=== PATIENT | female | born 1965 | race Caucasian/White ===

== ENCOUNTER 2021-02-18 17:52 | Emergency (ER) | payer OTHER ==
[2021-02-18 19:39] LABS: HEMOGLOBIN 14.2 gm/dl (12.3-15.3); RED BLOOD COUNT 4.82 M/UL (4.00-5.10); WHITE BLOOD COUNT 7.8 K/UL (4.5-11.0)
[2021-02-18] MEDS ORDERED: CEFUROXIME500 MG PO (20:35)
[2021-02-18] MEDS ORDERED: MEDROL4 MG PO (20:35)
[2021-02-18] MEDS ORDERED: VENTOLIN HFA 66.7 GM INH (20:35)
== END 2021-02-18 21:00 | disposition home or self-care (01) ==
LOC: ER1 17:52
PROVIDERS: Preventive Medicine Occupational Medicine
DX: J45.901 Unspecified asthma with (acute) exacerbation (principal); Z88.0 Allergy status to penicillin
CPT/HCPCS: 71046; 80048; 85025; 94664; 96374; 99285; J2930

== ENCOUNTER 2021-05-15 10:25 | Emergency (ER) | payer OTHER ==
[~2021-05-15 10:25] MED LIST: CEFUROXIME500 MG PO; MEDROL4 MG PO; VENTOLIN HFA 66.7 GM INH
[2021-05-15] MEDS ORDERED: ZOFRAN4 MG PO (11:19)
== END 2021-05-15 11:25 | disposition home or self-care (01) ==
LOC: ER1 10:25
DX: R53.83 Other fatigue (principal); R11.0 Nausea; R19.7 Diarrhea, unspecified; Z20.822 Contact with and (suspected) exposure to COVID-19; Z90.710 Acquired absence of both cervix and uterus; Z88.0 Allergy status to penicillin
CPT/HCPCS: 99284; U0003

== ENCOUNTER 2022-04-20 03:42 | Emergency (ER) | payer OTHER ==
[~2022-04-20 03:42] MED LIST changes: +ZOFRAN4 MG PO
== END 2022-04-20 04:00 | disposition left against medical advice (07) ==
LOC: ER1 03:42
DX: Z53.21 Procedure and treatment not carried out due to patient leaving prior to being seen by health care provider (principal)